=== PATIENT | male | born 1990 | race Caucasian/White ===

== ENCOUNTER 2022-09-26 22:43 | Emergency (ER) | payer BC, SELFPAY ==
[2022-09-26 22:44] VITALS: BP 148/86; BP 178/106; PULSE 103; PULSE 98; RESP 16; TEMP 36.4; O2SAT 100; O2SAT 99; BMI 20.3
--- NOTE | 2022-09-26 23:26 | EKG12_ITS ---
Test Reason : CP Blood Pressure : / mmHG Vent. Rate : 092 BPM Atrial Rate : 092 BPM P-R Int : 140 ms QRS Dur : 106 ms QT Int : 346 ms P-R-T Axes : 081 096 037 degrees QTc Int : 427 ms Normal sinus rhythm Normal ECG Confirmed by SHAHNAZ VIDAL MD ([id number]), medical transcription editor JAMES ELIZONDO ([id number]) on 09/28/2022 11:45:32 AM Referred By: BB Confirmed By:SHAHNAZ VIDAL MD
--- NOTE | 2022-09-26 23:27 | EX.ED.DYSGE1 ---
HPI History of Present Illness Chief Complaint: Chest Pain Informant: patient Onset/Context/Timing Onset: Hours (1.5) Context: Sudden Onset (w/ head movement) Timing: Intermittent and Lasts (seconds/minutes) Quality: dysequilibrium/movement Location: head Current Severity: Gone Maximum Severity: Moderate Worsened by: moving head Relieved by: remaining still/rest Associated Symptoms Associated Symptoms: brief chest discomfort and both hands turned white, and elevated BP Narrative Narrative: Patient is a 32-year-old who states he was walking and thinks he looked down at his phone and looked back up and suddenly had disequilibrium like he was off balance and walking crooked, he felt movement in his head, no nausea or vomiting or headache or syncope. No diplopia or vision loss, he had a bit of a visual disturbance whenever he would move his head or his eyes, but if he would stop and remain still would go away. He was able to have recurrent symptoms and triggering them with head movements subsequently. Never had this before. He felt very anxious about objective blood pressure and it was in the 190s. He then had an episode of midsternal chest discomfort, and he states that he noticed both of his hands went white, all of that resolved and now that he is here he is feeling better overall and asymptomatic while sitting or at rest. No recent URIs. No recent head injuries. No other illness. No recent travel out of the area. States he works a lot basically has just been going to and from work. He states he has dipped chewing tobacco for a long time and stopped cold turkey 1 week ago and has had some high elevated blood pressures and is concerned that is what is going on here. He is not supposed to be on any medication for it. He does have a PCP. [facility] Medical History no medical history no medical history Allergy/AdvReac Type Severity Reaction Status Date / Time No Known Allergies Allergy Verified 09/26/22 22:46 Social History Smoking Status: Never smoker ROS ROS ED Constitutional Constitutional ED: Denies chills or fever(s) Eyes Eyes: Reports change in vision bilateral (transient disturbance, only when vertiginous); Denies diplopia ENT ENT ED: Reports as per HPI and vertigo; Denies ear pain, rhinorrhea, sinus pain or sore throat Cardiovascular Cardiovascular: Reports chest pain; Denies palpitations Respiratory/Chest Respiratory/Chest: Denies cough or dyspnea Gastrointestinal Gastrointestinal: Denies abdominal pain, diarrhea, nausea or vomiting Genitourinary Genitourinary ED: Denies dysuria or hematuria Musculoskeletal Musculoskeletal: Denies back pain or neck pain Integumentary Denies abscess or rash Neurologic Neurologic: Reports as per HPI and vertigo; Denies headache(s), paresthesias or weakness Psychiatric Psychiatric: Reports anxiety; Denies suicidal thoughts EXAM Physical Exam Const Vital Signs: 09/26/22 22:44 09/26/22 22:44 09/26/22 23:12 Temperature 97.5 F L Temperature Source Temporal Pulse Rate 103 H 98 Respiratory Rate 16 16 Respiratory Effort Normal Non-Labored Blood Pressure 178/106 H 148/86 H Blood Pressure Mean 130 106 Pulse Ox 100 99 Oxygen Delivery Method Room Air Room Air 09/26/22 23:46 09/27/22 00:00 Temperature Temperature Source Pulse Rate 76 70 Respiratory Rate 13 17 Respiratory Effort Blood Pressure 145/88 H 138/85 H Blood Pressure Mean 107 102 Pulse Ox 97 97 Oxygen Delivery Method Room Air Room Air Positive well nourished and well developed General Appearance ED: well developed and NAD HEENT Reports TM's clear and moist mucous membranes normocephalic and atraumatic Tympanic Membrane ED: Yes TM's clear Eyes PERRL and EOMs intact bilaterally Eyes Narrative: No pathologic horizontal, vertical, or rotatory nystagmus Neck full ROM, no lymphadenopathy and supple Resp normal respiratory effort and clear to auscultation bilaterally Cardio regular rate, regular rhythm, no murmurs and peripheral pulses 2+ throughout GI non-tender and non-distended Auscultation: normoactive bowel sounds Palpation: soft Back/Spine no CVA tenderness General Back: other FROM Extremity normal to inspection General Extremety ED: Negative for edema, pulses abnormal or tenderness General Extremity: Negative for edema or pulses abnormal Neuro oriented x3, CN's II-XII intact bilaterally and no sensory deficits noted Neuro Narrative: Normal [id number] and hovg-rh-[id number] bilaterally. Recurrent mild symptoms with [place] bilaterally, worse on the right. Sitting up at rest patient asymptomatic, so jolt test not able to be performed. Sensorium / Orientation: awake and alert Motor Exam: strength 5/5 throughout Psych mental status grossly normal Skin no rashes or lesions noted and no wounds MDM MDM MDM Narrative Medical decision making narrative: EKG on this patient is normal. Given his age and health and the symptoms, I do not think that was cardiac in etiology and I do not think he needs further labs emergently. I did offer and consider a CT of the head emergently to rule out intracranial etiologies of vertigo that this patient has never had before, especially given his episode of hypertension, which I do not suspect caused his vertigo. He understands all that and does not want a head CT. Therefore it was not performed. He was given meclizine and monitored here, his blood pressure came down 138/85 without any treatment. At this time I am comfortable letting him go home, [id number] meclizine as needed, follow-up with his doctor to have his blood pressure rechecked, and I encouraged him to continue to avoid tobacco. It is possible he is having some hypertension as a result of withdrawal from nicotine but I do not think it necessarily because of the peripheral vertigo he had. Rhythm Strip Rhythm Strip: Sinus Rhythm Rate: 90 Ectopy: None EKG Initial EKG: Attestation: I personally reviewed and interpreted this EKG as follows: Interpretation: Sinus Rhythm and No Acute Injury Pattern Comments: normal EKG Discharge Plan Triage Chief Complaint: Chest Pain ED Provider: Sammy Masters Dx/Rx/DC Orders Clinical Impression: Episode of hypertension, Peripheral vertigo Instructions: Inner Ear Balance, Hypertension Dc, ED Vertigo, Unspecified Primary Care Provider: Evelia Maurer Referrals: Evelia Maurer MD [Primary Care Provider] - (Call for follow-up appointment to be seen within the next 1 or 2 weeks for blood pressure recheck and overall reevaluation of these symptoms.) Activity Restrictions/Additional Instructions: If you have recurrent dizziness/disequilibrium, you may get some [id number] generic meclizine and take it as needed, 1 pill up to every 8 hours. Disposition Disposition: Home, Self Care
[2022-09-26] MEDS: Meclizine HCl 25 MG Tablet PO (23:44)
[2022-09-26 23:46] VITALS: BP 145/88; PULSE 76; RESP 13; O2SAT 97
[2022-09-27] VITALS: BP 138/85; PULSE 70; RESP 17; O2SAT 97
[2022-09-27 01:21] VITALS: BP 136/67; PULSE 69; RESP 18; O2SAT 100
== END 2022-09-27 01:22 | disposition home or self-care (01) ==
PROVIDERS: Emergency Provider Emergency Medicine; PCP Family Medicine; Visit Provider Emergency Medicine
DX: H81.399 Other peripheral vertigo, unspecified ear (principal); I10 Essential (primary) hypertension; R07.89 Other chest pain
CPT/HCPCS: 93005; 99283; A4216